=== PATIENT | male | born 1960 | race Caucasian/White ===

== ENCOUNTER 2016-12-03 13:00 | Outpatient (RCR) | payer BC ==
--- NOTE | 2016-11-10 14:31 | PT/OT/ST INITIAL EVALUATION ---
Department of Health and Human Services Form Approved Health Care Financing Administration OMB No. [id number] PLAN OF CARE/ASSESSMENT FOR OUTPATIENT REHABILITATION (Complete for Initial Claims Only) 1. PATIENT'S NAME Goran Ravi 2. ACC # [id number] 3. HICN Na 4. PROVIDER NO. [id number] 5. TYPE: PT 6. PRIOR HOSPITALIZATION NA 7. PRIMARY DX Z98.890 status post left knee arthroscopy. 8. SECONDARY DX Left knee pain, left knee stiffness, and weakness. 9. ONSET DATE Surgery 11/06/2016 Injury June 2016 10. REFERRAL DATE 11/06/2016 11. SOC. DATE 11/10/2016 12. TIME OF EVAL 9:02 a.m. to 10:04 a.m. 12. REFERRING PHYSICIAN Marcelino Palafox MD 13. CHARGES/UNITS PT evaluation low complexity 56852 Therapeutic exercise 77935, 2 unit Vasopneumatic device 17199, 1 unit 14. G CODES 15. PRIOR LEVEL OF FUNCTION; PERTINENT HISTORY (Prior therapy results, reason for referral.) S: Prior to therapy the patient consented to today's evaluation and treatment. The patient is a 56-year-old male referred to physical therapy by Dr. Palafox to address to address functional limitations secondary to left knee arthroscopy performed on 11/06/2016. Current complaint/Mechanism of injury: The patient reports that he had a left knee scope on 11/06/2016 after injuring his left knee while playing tennis in June 2016. The patient reports that he struggled with swelling and pain since that time and quit playing tennis at the beginning of August 2016. Functional performance/Prior level of function: Lower Extremity Functional Index rates the patient as 42/80. The patient reports that he stopped playing tennis at the beginning of August 2016 due to swelling and in September the patient had increased pain and had to see the physician. 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 Normally he works 8 to 5. The patient states he will be returning to his job this afternoon. 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 Therapy History: No therapy recently for his left knee. Pain level: The patient rates the current pain level as 1/10 and describes it as more of a pain in his proximal thigh from the tourniquet and it is a muscle pain. The patient states that his left knee is doing well. Obstacles to delivery of care: None noted. Aggravating factors: Include moving around a lot and flexion of left knee hurts his left thigh. Relieving factors: None Diagnostic testing: None noted. Past medical history: Includes high cholesterol, which is controlled. Past surgical history: Includes left knee scope on 11/06/2016. Right knee scope in the past. Left index finger and left pointer finger. Current medications: Simvastatin 40 mg. Leisure activities: Cycling and playing tennis. Activity level: Listed as moderate. Personal health rating: Listed as good. Patient's Goal: The patient's goal for physical therapy is to be able to make sure that he is doing things right to help his left knee. 16. INITIAL ASSESSMENT/SAFETY PRECAUTIONS/MEDICAL COMPLICATIONS (Level of function at start of care. Be specific, use objective measures, list problems.) O: APPEARANCE, OBSERVATION AND GAIT: The patient is a 56-year-old male who appears healthy. He ambulates into the clinic without an assistive device and without major compensation. The patient has bruising of the proximal medial left thigh. The patient has 2 Steri-Strips covering 2 scope incisions of his left knee. No significant drainage. No signs or symptoms of infection. The patient lives in a home by himself with 2 steps into the home and steps into the house, but none that he has to do. The patient is currently putting 2 feet on each step going up and down. The patient has mild swelling as compared to his right lower extremity and has good active range of motion of his left knee. PALPATION: The patient was not significantly tender to palpate of his left knee. SPECIAL TESTS: Negative bilateral Homans of the lower extremities. RANGE OF MOTION/FLEXIBILITY: Active range of motion of knees right flexion 142 degrees, left flexion 125 degrees. Both measured in the supine position. Extension right +2 degrees, left 0 degrees. STRENGTH: No formal manual muscle testing was performed, but upon observation the patient would rate a 4-/5 on the left lower extremity into knee flexion and extension. TODAY'S TREATMENT: Included the initial PT evaluation followed by therapeutic exercise. The patient was given home exercise program handouts followed by vasopneumatic device. 17. INITIAL POC: (Specify procedures, modalities, short and fdc goals) A: The patient presents to physical therapy with the diagnosis of status post left knee arthroscopy with functional limitations of left knee pain, left knee stiffness and weakness. The patient would benefit from physical therapy in order to help decreased swelling of the left knee and lower extremity and to improve active range of motion of the left knee and to improve muscle activation to provide a stable knee to decrease risk of reinjury and to return to activities such as ascending and descending steps with a reciprocal pattern and returning to normal activities, which is cycling and tennis without significant deviation. PROGNOSIS: The patient has a good prognosis for increased active range of motion with decreased pain with regular therapy attendance and compliance with prescribed home exercise program. CONTRAINDICATIONS, PRECAUTIONS AND OBSTACLES TO DELIVERY OF CARE: No contraindications, precautions, or obstacles are noted at this time. INFORMED CONSENT: The prognosis and goals were discussed with the patient, as well as the expected outcome and possible risks. The patient agreed to undergo PT evaluation and further treatment. SHORT TERM GOALS: 1. The patient is to have a decrease in pain of the left knee with less than or equal to 1/10 with activity within 4 weeks in order to ambulate and go up and down steps reciprocally and return to cycling and tennis without deviation. 2. The patient is to have an increase in active range of motion of the left knee to 0 to 140 degrees in 4 weeks in order to return to cycling without deviation. 3. The patient is to have an increase in manual muscle testing of the left knee to 4+/5 flexion and extension in order to go up and down steps reciprocally and to return to playing tennis without deviation. 4. The patient is to be independent with a progressive home exercise program P: Plan to treat this patient 1 to 2 times a week for 4 weeks to address functional limitations. Treatment to include modalities for pain and inflammation, manual therapy interventions, therapeutic exercise, active and passive range of motion, gait training, balance proprioceptive training and patient education and progressive home exercise program to be advanced as tolerable. 18. FREQUENCY 1 to 2 times per week 19. DURATION 4 weeks 20. FUNCTIONAL LEVEL (End of claim period) 21. PHYSICIAN SIGNATURE ? ON FILE OR ENTER HERE: 22. DATE: I certify the need for these services furnished under this plan of care and if for partial hospitalization. 23. CERTIFICATION FROM THROUGH FORM [id number]
[~2016-12-03 13:00] MED LIST: ATOR40TA2 PO; LSNP10T PO; SIMV20TA; SULF5DRO OS
== END 2016-12-08 13:07 | disposition home or self-care (01) ==
LOC: PT 13:00
PROVIDERS: ATTEND Orthopaedic Surgery
DX: Z98.890 Other specified postprocedural states (principal); M25.562 Pain in left knee; M25.662 Stiffness of left knee, not elsewhere classified